=== PATIENT | female | born 1995 | race Two or more races ===

== ENCOUNTER → 2021-10-25 | Emergency (ER) | payer BC ==
[~2021-10-25] VITALS: Ht 152.4 cm; Wt 61.2 kg
[~2021-10-25] MED LIST: LEVONOR-ETH ES1 EAC1 PO
== END | disposition left against medical advice (07) ==
LOC: ER 22:43
DX: Z53.21 Procedure and treatment not carried out due to patient leaving prior to being seen by health care provider (principal)

== ENCOUNTER 2021-10-26 09:44 | Emergency (ER) | payer BC ==
[~2021-10-26] VITALS: Ht 172.7 cm; Wt 61.2 kg
[2021-10-26] MEDS ORDERED: LEVONOR-ETH ES1 EAC1 PO (09:57)
== END 2021-10-26 15:11 | disposition home or self-care (01) ==
LOC: ER 09:44
DX: R60.0 Localized edema (principal); M79.662 Pain in left lower leg

== ENCOUNTER 2021-11-02 10:17 | Outpatient (CLI) | payer BC | END 2021-11-02 16:37 | disposition home or self-care (01) | LOC: LAB 10:17 | PROVIDERS: ATTEND Orthopaedic Surgery | DX: E55.9 Vitamin D deficiency, unspecified (principal); M85.9 Disorder of bone density and structure, unspecified; M06.9 Rheumatoid arthritis, unspecified; D64.9 Anemia, unspecified; E88.9 Metabolic disorder, unspecified; M25.572 Pain in left ankle and joints of left foot; M79.672 Pain in left foot ==